=== PATIENT | female | born 1955 | race Caucasian/White ===

== ENCOUNTER → 2018-05-11 | Day surgery (SDC) | payer OTHER ==
[~2018-05-11] VITALS: Ht 157.5 cm; Wt 83.5 kg
[2018-05-11] VITALS (15 sets, daily range): BP systolic 120–152; BP diastolic 62–72
[~2018-05-11] MED LIST: ACIPHEX20 MG PO; ADDERALL 30 MG30 MG PO; ALBUTEROL0.63 MG/3 INH; ARYTHROMYCIN PO; ASPIR 8181 MG PO; CRESTOR10 MG PO; DAILY MULTIPLE1 EACH PO; FENTANYL CITRATE/PF 100MCG/2 ML INJ ONE; HEPARIN SOD/SOD CHLORIDE 2,000 ML ONE; HYDROCODON-ACE1 EA11 PO; IOPAMIDOL 370 MG/ML 200 ML INFUS..BTL INJ ONE; L-LYSINE500 M1 PO; L-TYROSINE PO; LIDOCAINE HCL 2% LOCAL 20 ML VIAL ONE; LUNESTA3 MG PO; METFORMIN HCL500 MG PO; MIDAZOLAM HCL 2 MG/2 ML VIAL ONE; MINOCYCLINE HC100 MG PO; NASALCORT; NITROGLYCERIN/D5W 200 MCG/ML 250 ML ONE; SODIUM CHLORIDE 0.9% 1000ML 1,000 ML ONE; VERAPAMIL HCL 2.5 MG/ML 2 ML VIAL ONE; VITAMIN C1000 MG PO; [UNRECOGNIZED DRUG - OTHER] SC
[2018-05-11 12:45] LABS: BASOPHILS % 0.5 % (0.0-1.0); EOSINOPHILS % 0.4 % (0.0-6.0); HEMATOCRIT 41.7 % (34.2-44.1); HEMOGLOBIN 13.8 g/dL (12.0-16.0); LYMPHOCYTES # (AUTO) 2.4 (1.0-3.2); LYMPHOCYTES % 28.4 % (18.0-39.1); MEAN CORPUSCULAR HEMOGLOBIN 29.2 pg (28-32); MEAN CORPUSCULAR HGB CONC 33.1 g/dL (31-35); MEAN CORPUSCULAR VOLUME 88.3 fL (81-99); MONOCYTES # (AUTO) 0.7 (0.2-0.8); NEUTROPHILS # (AUTO) 5.2 (2.1-6.9); NEUTROPHILS % 62.5 % (38.7-80.0); PLATELET COUNT 420 x10e3/uL (140-360); RED BLOOD COUNT 4.72 x10e6/uL (3.6-5.1); RED CELL DISTRIBUTION WIDTH 13.2 % (11.7-14.4)
[2018-05-11 12:54] LABS: INR 1.01; PROTHROMBIN TIME 12.5 seconds (11.9-14.5)
[2018-05-11 13:11] LABS: ALANINE AMINOTRANSFERASE 28 IU/L (0-55); ALBUMIN 4.1 g/dL (3.5-5.0); ALBUMIN/GLOBULIN RATIO 1.1 (0.8-2.0); ALKALINE PHOSPHATASE 79 IU/L (40-150); ANION GAP 13.9 mmol/L (8-16); BLOOD UREA NITROGEN 12 mg/dL (7-26); BUN/CREATININE RATIO 19 (6-25); CALCIUM 10.4 mg/dL (8.4-10.2); CARBON DIOXIDE 25 mmol/L (22-29); CHLORIDE 104 mmol/L (98-107); CHOL/HDL RATIO 4.3 (3.0-3.6); CHOLESTEROL 193 MD/DL (0-199); CREATININE, SERUM 0.64 mg/dL (0.57-1.11); EST GLOMERULAR FILTRATION RATE > 60 ML/MIN (60-); GLUCOSE 99 mg/dL (74-118); HDL CHOLESTEROL 45 MG/DL (40-60); LDL CHOLESTEROL 117 MG/DL (60-130); POTASSIUM 3.9 mmol/L (3.5-5.1); SODIUM 139 mmol/L (136-145); TRIGLYCERIDES 156 MG/DL (0-149)
--- NOTE | 2018-05-11 17:43 | Operative Report ---
DATE OF PROCEDURE: May 11, 2018 PROCEDURE INDICATION: Preoperative evaluation with limited exercise capacity, symptoms concerning for angina pectoris, abnormal stress test with apical ischemia, preserved left ventricular systolic function. PROCEDURE PERFORMED 1. Left heart catheterization. 2. Selective coronary angiography x2. 3. Right radial transradial band hemostasis. PROCEDURE COMPLICATIONS: None. ESTIMATED BLOOD LOSS: Less than 15 mL. PROCEDURE SUMMARY: After consent was obtained, patient was prepped and draped in a sterile fashion, and the right radial site was locally infiltrated with 2% lidocaine. Access was obtained using a single interior stick and a 5-[place] outer-diameter Slender sheath advanced over a wire, and 2.5 mg of verapamil, 300 mcg of nitroglycerin and 3000 units of heparin were administered via the sheath. A José Antonio catheter was advanced over a J wire into the proximal ascending aorta and used to cross the aortic valve with hemodynamic measurements as well as to engage the left main and then the right coronary artery respectively for angiography in multiple views. The following findings were observed: 1. LV pressure was 136/4 with an end-diastolic pressure of 8, and with repeated measurement peak excursion was 146/5 with end-diastolic pressure of 12. Aortic pressure was 142/77. 2. Left main is large in caliber with luminal irregularities and gives an LAD and a circumflex. 3. The LAD is large caliber with luminal irregularities, gives a diagonal of small to medium caliber and multiple small caliber septal perforators. 4. The circumflex gives 2 obtuse marginals and has luminal irregularities. 5. The right coronary artery in the proximal portion has an area of 30% stenosis which is smooth in contour and tubular in length. RV marginal is of small caliber and arises from this vessel, and a terminal small caliber RPDA and a small to medium caliber RPLV are observed. CONCLUSION: Mild coronary artery disease. RECOMMENDATIONS: Medical optimization for mild CAD. Wean TR band. IV fluids. Patient may proceed with orthopedic/spine procedure with a low risk for adverse cardiovascular outcomes. Job#: [id number]
== END | disposition home or self-care (01) ==
LOC: CATH LAB 10:44
PROVIDERS: ATTEND Internal Medicine Cardiovascular Disease
DX: I25.119 Atherosclerotic heart disease of native coronary artery with unspecified angina pectoris (principal); R94.39 Abnormal result of other cardiovascular function study; R01.1 Cardiac murmur, unspecified; R00.2 Palpitations; I10 Essential (primary) hypertension; E78.5 Hyperlipidemia, unspecified; E11.9 Type 2 diabetes mellitus without complications; Z88.8 Allergy status to other drugs, medicaments and biological substances; Z79.82 Long term (current) use of aspirin; Z68.34 Body mass index [BMI] 34.0-34.9, adult; Z82.49 Family history of ischemic heart disease and other diseases of the circulatory system
CPT/HCPCS: 36415; 80053; 80061; 85025; 85610; 93005; 93458; C1887; J2001; J2250; J7030; Q9967